=== PATIENT | female | born 1960 | race Caucasian/White ===

== ENCOUNTER 2018-10-16 18:17 | Emergency (ER) | payer SELFPAY ==
[2018-10-16 18:36] VITALS: BMI 23.3
[2018-10-16 18:40] VITALS: RESP 20
--- NOTE | 2018-10-16 20:21 | C.PDOC ---
History Of Present Illness 58 y/o female presents to the ED with complaints of cough, congestion, subjective dyspnea, and chest pain for 3 days. Pain worsens with deep inspiration. No fevers. Otherwise no other complaints. Time Seen by Provider: 10/16/18 20:03 Chief Complaint (Nursing): Cough, Cold, Congestion History Per: Patient History/Exam Limitations: no limitations Onset/Duration Of Symptoms: Days (x 3) Current Symptoms Are (Timing): Still Present Associated Symptoms: Cough, Nasal Congestion. denies: Fever Past Medical History Reviewed: Historical Data, Nursing Documentation, Vital Signs Vital Signs: Last Vital Signs Temp 98.1 F 10/16/18 18:36 Pulse 75 10/16/18 18:36 Resp 20 10/16/18 18:36 BP 136/62 10/16/18 18:36 Pulse Ox 97 10/16/18 18:36 Surgical History: Cholecystectomy - [facility] Procedures COLONOSCOPY (08/20/13) LAPAROSCOP LYSIS-PERITONEAL ADHES (07/07/13) LAPAROSCOPIC CHOLECYSTECTOMY (07/07/13) Family History: States: Unknown Family Hx - Social History Hx Tobacco Use: No Hx Alcohol Use: No Hx Substance Use: No Review Of Systems Except As Marked, All Systems Reviewed And Found Negative. Constitutional: Negative for: Fever, Chills Eyes: Negative for: Vision Change ENT: Positive for: Nose Congestion Cardiovascular: Positive for: Chest Pain. Negative for: Palpitations Respiratory: Positive for: Cough, Shortness of Breath, Pleuritic Pain Gastrointestinal: Negative for: Nausea, Vomiting, Diarrhea Neurological: Negative for: Weakness, Numbness, Dizziness Physical Exam - Physical Exam Appears: Non-toxic, No Acute Distress Skin: Warm, Dry Head: Atraumatic, Normacephalic Eye(s): bilateral: PERRL, EOMI, left: Other (Mild conjunctival injection) Oral Mucosa: Moist Throat: Erythema (pharyngeal erythema), No Exudate Neck: Normal ROM Chest: Symmetrical Cardiovascular: Rhythm Regular, No Murmur Respiratory: Normal Breath Sounds, No Rales, No Rhonchi, No Wheezing Extremity: Bilateral: Atraumatic, Normal Color And Temperature Neurological/Psych: Oriented x3, Normal Speech ED Course And Treatment - Laboratory Results Result Diagrams: 10/16/18 20:25 10/16/18 20:25 ECG: Interpreted By Me, Viewed By Me ECG Rhythm: Sinus Rhythm Interpretation Of ECG: no ST or T wave changes Rate From EC (bpm) O2 Sat by Pulse Oximetry: 97 (RA) Pulse Ox Interpretation: Normal Medical Decision Making Medical Decision Making: ro cardiac pe, influenza pna. - lungs cta Plan: - CBC, CMP, coags, cardiac enzymes - Urinalysis - Flu swab - EKG - Chest x-ray labs neg. empric tamiflu given speaking full sentences in nad. stable for dc Disposition - Disposition Referrals: [facility] [Outside] [facility] [Outside] Disposition: HOME/ ROUTINE Disposition Time: 21:00 Condition: STABLE Additional Instructions: return to er with worsening symptoms or concerns. Prescriptions: Oseltamivir Phosphate [Tamiflu] 75 mg PO BID #10 capsule Polymyxin/Trimethoprim Sulfate [Polytrim Ophth Soln] 1 drop LEFTEYE Q4 #1 bottle Instructions: Chest Pain, Shortness of Breath (Dyspnea), Viral Syndrome (DC), Upper Respiratory Infection (ED) Forms: [id number] (Hungarian) - Clinical Impression Clinical Impression: Influenza-like illness, Conjunctivitis - Scribe Statement The provider has reviewed the documentation as recorded by the Mirna Hill Provider Attestation: All medical record entries made by the Mirna were at my direction and personally dictated by me. I have reviewed the chart and agree that the record accurately reflects my personal performance of the history, physical exam, medical decision making, and the department course for this patient. I have also personally directed, reviewed, and agree with the discharge instructions and disposition.
[2018-10-16 20:30] LABS: BASO # 0.1 K/uL (0.0-0.2); BASO % 0.7 % (0.0-2.0); EOS # 0.3 K/uL (0.0-0.7); EOS % 3.5 % (0.0-4.0); HEMOGLOBIN 11.8 g/dL (11.0-16.0); LYMPH # 2.4 K/uL (1.0-4.3); LYMPH % 26.8 % (20.0-40.0); MEAN CELL VOLUME 89.3 fL (81.0-99.0); MEAN CORPUSCULAR HEMOGLOBIN 29.9 pg (27.0-31.0); MEAN CORPUSCULAR HGB CONC 33.5 g/dL (33.0-37.0); MEAN PLATELET VOLUME 8.2 fL (7.2-11.7); MONO # 0.5 K/uL (0.0-0.8); MONO % 6.1 % (0.0-10.0); NEUT # 5.6 K/uL (1.8-7.0); NEUT % 62.9 % (50.0-75.0); RBC 3.96 Mil/uL (3.80-5.20); RED CELL DISTRIBUTION WIDTH 13.9 % (11.5-14.5)
[2018-10-16 20:39] LABS: INR 1.1; PARTIAL THROMBOPLASTIN TIME 34 SECONDS (21-34); PROTHROMBIN TIME 11.7 SECONDS (9.7-12.2)
[2018-10-16 20:40] LABS: D DIMER < 200 ng/mlDDU (0-243)
[2018-10-16 20:42] LABS: ALB/GLOB RATIO 1.4 (1.0-2.1); ALBUMIN 4.4 g/dL (3.5-5.0); ALT/SGPT 27 U/L (9-52); AST/SGOT 24 U/L (14-36); BLOOD UREA NITROGEN 23 mg/dL (7-17); CALCIUM 8.9 mg/dl (8.6-10.4); GFR NON-AFRICAN AMERICAN > 60
[2018-10-16 20:54] LABS: B-TYPE NATRIURETIC PEPTIDE 37.8 pg/mL (0-900)
[2018-10-16 20:55] LABS: SQUAMOUS EPITHIAL < 1 /hpf (0-5); URINE BACTERIA RARE (<OCC); URINE BILIRUBIN NEGATIVE (NEGATIVE); URINE BLOOD 1+ (NEGATIVE); URINE CLARITY Clear (Clear); URINE COLOR Colorless (YELLOW); URINE GLUCOSE (UA) NORMAL (Normal); URINE LEUKOCYTE ESTERASE NEG Leu/uL (Negative); URINE PROTEIN NEGATIVE (NEGATIVE); URINE UROBILINOGEN NORMAL mg/dL (0.2-1.0)
[2018-10-16 21:35] VITALS: BP 136/70; PULSE 89; TEMP 97.4
[2018-10-16 22:09] VITALS: O2SAT 97
--- NOTE | 2018-10-17 11:17 | RAD ---
HISTORY: chest pain COMPARISON: Chest x-ray performed 07/02/13 TECHNIQUE: Chest, one view. FINDINGS: LUNGS: No focal consolidation. Please note that chest x-ray has limited sensitivity for the detection of pulmonary masses. PLEURA: No significant pleural effusion identified. No definite pneumothorax . CARDIOVASCULAR: Heart size appears within normal limits. OSSEOUS STRUCTURES: No acute osseous abnormality identified. VISUALIZED UPPER ABDOMEN: Unremarkable. OTHER FINDINGS: None. IMPRESSION: No focal consolidation.
--- NOTE | 2018-10-18 18:50 | CARD ---
APPROVED REPORT Date of service: 10/16/2018 EKG Measurement Heart [id number] <Conclusion> Normal sinus rhythm rsR' V1 - V2 Otherwise Normal ECG
== END 2018-10-16 21:36 | disposition home or self-care (01) ==
LOC: C.ER 18:17
DX: J11.1 Influenza due to unidentified influenza virus with other respiratory manifestations (principal); H10.9 Unspecified conjunctivitis